=== PATIENT | female | born 1965 | race Caucasian/White ===

== ENCOUNTER → 2018-01-20 | Outpatient (CLI) | payer OTHER ==
--- NOTE | 2018-01-20 10:48 | RAD ---
AP view of the pelvis Clinical indications: Disability exam. Back pain. FINDINGS: No acute fracture or dislocation or osteolytic process or diastases is seen. No significant arthritic change of either hip is seen. IMPRESSION: No acute osseous abnormality. Electronically signed by: Jonathan Sung MD (01/20/2018 10:45 AM) [id number]
--- NOTE | 2018-01-20 10:55 | RAD ---
Three-view lumbar spine series Clinical indications: Disability exam. Low back pain. FINDINGS: Laminectomy or spina bifida defect of the right side of L5 is seen. The transverse processes are intact. No compression fracture or discitis or osteolytic process is evident. No anterolisthesis is evident. Degenerative disc space narrowing and endplate spurring is seen from L2-3 down through L5-S1. IMPRESSION: No acute compression fracture. Degenerative lumbar spondylosis. Electronically signed by: Jonathan Sung MD (01/20/2018 10:51 AM) [id number]
== END | disposition home or self-care (01) ==
LOC: DXRAD 09:25
PROVIDERS: ATTEND Surgery
DX: M47.896 Other spondylosis, lumbar region (principal); M51.36 Other intervertebral disc degeneration, lumbar region; M48.061 Spinal stenosis, lumbar region without neurogenic claudication
CPT/HCPCS: 72100; 72170